=== PATIENT | male | born 1985 | race Caucasian/White ===

== ENCOUNTER 2021-08-02 13:18 | Emergency (ER) | payer OTHER, SELFPAY ==
--- NOTE | ~2021-08-02 | XR_ITS ---
EXAMINATION: XR knee RT min 4V DATE: 08/02/2021 13:52 INDICATION: Right knee injury and pain. TECHNIQUE: 5 views of right knee were obtained. COMPARISON: None. FINDINGS: Bone alignment is normal. No fracture. Joint spaces are well maintained. There is no knee j oint effusion. There is prepatellar soft tissue swelling. IMPRESSION: 1. No fracture or radiopaque foreign body. Reviewed, dictated and finalized at location [facility]
[2021-08-02 13:31] VITALS: BP 138/86; PULSE 81; RESP 16; TEMP 37.5; O2SAT 99
[2021-08-02] MEDS: TETANUS,DIPHTHERIA,AC PERTUSSIS ADULT (0.5 ML) BOOSTRIX IM (13:52)
--- NOTE | 2021-08-02 13:52 | ED.GENADULT ---
HPI - General Adult General Chief complaint: Extremity Injury, Lower Stated complaint: Right Knee Injury Source: patient Mode of arrival: ambulatory Limitations: no limitations History of Present Illness HPI narrative: Patient presents for evaluation of wound to the right knee. He indicates that he knelt on a nail yesterday while working. He was wearing pants at the time of the injury. He has noted swelling and redness to the affected area. Rates his pain 4 out of 10 in severity at rest but 8 out of 10 in severity with palpation. No fever, chills, nausea, vomiting, purulent drainage. He is not diabetic. He smokes 1 pack a day. He has not tried any therapies to assist with his symptoms. No additional complaints or concerns. Related Data Allergies Allergy/AdvReac Type Severity Reaction Status Date / Time No Known Allergies Allergy Verified 08/02/21 13:42 Review of Systems Review of Systems: CONSTITUTIONAL: Denies fever, chills, or sweats. EYES: Denies visual changes, redness, or discharge. ENT: Denies rhinorrhea, congestion, sore throat, or otalgia. CARDIOVASCULAR: Denies chest pain, palpitations, or edema. RESPIRATORY: Denies cough or dyspnea. GASTROINTESTINAL: Denies abdominal pain, nausea, vomiting, or diarrhea. GENITOURINARY: Denies dysuria or hematuria. SKIN: Reports puncture wound to the right knee. MUSCULOSKELETAL: Reports right knee pain. Denies back pain NEUROLOGIC: Denies headache, numbness, dizziness, or weakness. PSYCHIATRIC: Denies anxiety or depression. FOR[facility]LY [facility] Past Medical History Medical History (Updated 08/02/21 @ 13:59 by DARCY Nichols, ) No pertinent past medical history Surgical History Surgical History No pertinent past surgical history Family History Family History Mother Family history unknown Social History Social History Smoking packs per day: 1 Smoking cigarettes per day: 20.0 Smoking status: Current every day smoker Alcohol intake: current Alcohol use details: Social Substance use: never Living arrangements: with family Gender identity (if verbalized by the patient): Male Sexual Orientation (if Verbalized by the Patient): Straight or Heterosexual Spiritual care concerns: No Exam Narrative: GENERAL: Well-appearing, well-nourished, and in no acute distress. HEAD: Normocephalic, atraumatic. EYES: PERRLA and EOMI. ENT: Nares clear, no rhinorrhea or epistaxis. Mucous membranes moist. Oropharynx without tonsillar hypertrophy exudate or other lesions. Bilateral TMs pearly rivera nonbulging NECK: Supple. No adenopathy or masses. No carotid bruits or JVD CHEST: Clear to auscultation. No respiratory distress. No wheezes rales or rhonchi HEART: Regular rate and rhythm. No murmur heard. Normal peripheral pulses. ABDOMEN: Soft, nontender, nondistended, normal active bowel sounds. EXTREMITIES: Normal range of motion. No edema. SKIN: Puncture wound noted to the anterior aspect of the right knee. There is some surrounding swelling and erythema. Skin is warm, dry, no rash. NEURO: No focal deficits. Alert and oriented x3. PSYCH: Normal mood and affect. Course Course Emergency Course: This is a 36-year-old male who presented with complaints of swelling to the anterior aspect of the right knee after kneeling on a nail yesterday. X-ray with no evidence of fracture or radiopaque foreign body. He was updated on his tetanus. We will treat for cellulitis with Bactrim and Keflex. He was advised to monitor area closely and follow-up with his primary care provider and Workmen's Compensation provider. She go to the ER for fever, chills, purulent drainage or worsening swelling. Patient agreement with plan of care. Level of Care: Express Care Visit Vital Signs Vital signs: Vital Signs
== END 2021-08-02 14:07 | disposition home or self-care (01) ==
PROVIDERS: Emergency Provider Nurse Practitioner
DX: L03.115 Cellulitis of right lower limb (principal); S81.031A Puncture wound without foreign body, right knee, initial encounter; W45.0XXA Nail entering through skin, initial encounter; Y99.0 Civilian activity done for income or pay; Z23 Encounter for immunization; F17.210 Nicotine dependence, cigarettes, uncomplicated
CPT/HCPCS: 73564; 90471; 90715; 99213; G0463